=== PATIENT | female | born 1985 | race African-American/Black ===

== ENCOUNTER 2017-05-02 01:36 | Emergency (ER) | payer MEDICAID ==
[~2017-05-02] VITALS: Ht 165.1 cm; Wt 98.0 kg
[2017-05-02] MEDS ORDERED: KETOROLAC 30MG/ML VIAL IV ONE (02:15)
[2017-05-02 02:25] LABS: BASOPHILS % 0.9 % (0.0-2.0); EOSINOPHILS % 8.9 % (0.0-5.0); HEMOGLOBIN. 13.4 g/dL (12.0-16.0); LYMPHOCYTES % 21.1 % (20.0-50.0); MEAN CORPUSCULAR HEMOGLOBIN 31.2 pg (28.0-32.0); MEAN CORPUSCULAR VOLUME 90.6 fL (81.0-99.0); MEAN PLATELET VOLUME 9.2 fl (7.4-10.4); MONOCYTES % 7.2 % (2.0-8.0); NEUTROPHILS % 61.9 % (40.0-76.0); PLATELET 195 x1000/uL (130-400); RED CELL DISTRIBUTION WIDTH 13.1 % (11.6-14.6)
[2017-05-02 02:33] LABS: CHLORIDE 103 mEq/L (98-107)
[2017-05-02 02:36] LABS: D-DIMER 0.34 mg/L FEU (<0.50); PARTIAL THROMBOPLASTIN TIME 24.1 sec (23.4-31.0); PROTHROMBIN TIME 10.7 sec (9.4-11.6)
[2017-05-02 02:39] LABS: CARBON DIOXIDE 25 mEq/L (21-32)
[2017-05-02 03:11] LABS: CLARITY URINE CLOUDY (CLEAR); COLOR URINE YELLOW (YELLOW); KETONES URINE TRACE (NEGATIVE); LEUKOCYTE ESTERASE URINE TRACE (NEGATIVE); NITRITE URINE NEGATIVE (NEGATIVE); OCCULT BLOOD URINE TRACE (NEGATIVE); PH URINE 5.5 (4.5-8.0); PROTEIN URINE 2+ (NEGATIVE); SPECIFIC GRAVITY URINE 1.031 (1.005-1.030)
[2017-05-02 05:21] VITALS: BP 135/77
== END 2017-05-02 05:23 | disposition home or self-care (01) ==
LOC: ER 01:36
DX: R10.9 Unspecified abdominal pain (principal); R30.0 Dysuria; R00.0 Tachycardia, unspecified
CPT/HCPCS: 36415; 71010; 80048; 81001; 81025; 85025; 85379; 85610; 85730; 93005; 99285; Z7610

== ENCOUNTER 2018-07-21 18:12 | Emergency (ER) | payer MEDICAID ==
[~2018-07-21] VITALS: Ht 160 cm; Wt 104.0 kg
[2018-07-21] MEDS ORDERED: SODIUM CHLORIDE 0.9% 1,000 ML IV ONE (19:35)
[2018-07-21 20:15] LABS: BASOPHILS % 0.7 % (0.0-2.0); EOSINOPHILS % 4.6 % (0.0-5.0); HEMATOCRIT. 39.6 % (36.0-48.0); HEMOGLOBIN. 13.1 g/dL (12.0-16.0); LYMPHOCYTES % 27.3 % (20.0-50.0); MEAN CORPUSCULAR HEMOGLOBIN 31.6 pg (28.0-32.0); MEAN CORPUSCULAR VOLUME 95.9 fL (81.0-99.0); MONOCYTES % 8.8 % (2.0-8.0); NEUTROPHILS % 58.6 % (40.0-76.0); PLATELET 189 x1000/uL (130-400); RED BLOOD CELL COUNT 4.13 mill/uL (4.2-5.4); RED CELL DISTRIBUTION WIDTH 12.9 % (11.6-14.6)
[2018-07-21 20:19] LABS: CHLORIDE 103 mEq/L (98-107)
[2018-07-21 20:22] LABS: HCG SCREEN NEGATIVE
[2018-07-22 01:00] VITALS: BP 122/78
== END 2018-07-22 01:37 | disposition home or self-care (01) ==
LOC: ER 18:12
DX: R42 Dizziness and giddiness (principal); R00.2 Palpitations; J45.909 Unspecified asthma, uncomplicated; Z98.890 Other specified postprocedural states; Z91.010 Allergy to peanuts; Z91.018 Allergy to other foods
CPT/HCPCS: 36415; 71045; 80053; 81025; 82962; 84703; 85025; 93005; 96360; 96361; 99284; J7030

== ENCOUNTER 2023-04-13 22:58 | Emergency (ER) | payer MEDICAID ==
[~2023-04-13] VITALS: Ht 160 cm; Wt 93.0 kg
[2023-04-13] MEDS ORDERED: METHYLPREDNISOLONE SOD SUCC 125MG/2ML (ACT-O-VIAL) IV STA (23:17)
[2023-04-13] MEDS ORDERED: ALBUTEROL (0.083%) 2.5MG/3ML NEB HHN STA (23:17)
[2023-04-13] MEDS ORDERED: IPRATROPIUM BROMIDE (0.02%) 0.5MG/2.5ML NEB HHN STA (23:17)
[2023-04-13] MEDS ORDERED: GUAIFENESIN 600MG ER TABLET PO ONE (23:30)
[2023-04-13] MEDS ORDERED: ACETAMINOPHEN 325MG TABLET PO ONE (23:30)
[2023-04-13] MEDS ORDERED: SODIUM CHLORIDE 0.9% 1,000 ML IV ONE (23:30)
[2023-04-14 00:15] VITALS: PULSE 108; RESP 18; O2SAT 98
[2023-04-14 00:39] LABS: *AMPHETAMINES SCREEN URINE NEGATIVE (NEGATIVE); *BARBITURATES SCREEN URINE NEGATIVE (NEGATIVE); *BENZODIAZEPINES SCREEN URINE NEGATIVE (NEGATIVE); *COCAINE SCREEN URINE NEGATIVE (NEGATIVE); CANNABINOID URINE SCREEN NEGATIVE (NEGATIVE); ECSTASY MDMA SCREEN URINE NEGATIVE (NEGATIVE); METHADONE URINE SCREEN Neg (NEGATIVE); OPIATES URINE SCREEN NEGATIVE (NEGATIVE); PHENCYCLIDINE URINE SCREEN NEGATIVE (NEGATIVE)
[2023-04-14 03:12] LABS: CHLORIDE 103 mEq/L (98-107); POTASSIUM 3.5 mEq/L (3.5-5.1); SODIUM 143 mEq/L (136-145)
[2023-04-14 03:13] LABS: CARBON DIOXIDE 26 mEq/L (21-32); CREATININE 0.6 mg/dL (0.6-1.0); GLUCOSE 91 mg/dL (70-105); UREA NITROGEN BLOOD 3 mg/dL (9-23)
[2023-04-14 03:14] LABS: CALCIUM 9.7 mg/dL (8.7-10.4); PROTEIN TOTAL 6.3 g/dL (6.0-8.3)
[2023-04-14 03:15] LABS: ALANINE AMINOTRANSFERASE 57 IU/L (10-49); ALBUMIN 3.6 g/dL (3.2-4.8); ASPARTATE AMINOTRANSFERASE 68 IU/L (<34); BILIRUBIN TOTAL 0.3 mg/dL (0.1-1.0); ETHANOL BLOOD 95 mg/dL (<10)
[2023-04-14] MEDS ORDERED: ALBU05 NEB (03:25)
[2023-04-14] MEDS ORDERED: GUAI600T26 MT (03:25)
[2023-04-14] MEDS ORDERED: ACET-2708 MT (03:25)
[2023-04-14] MEDS ORDERED: MED4 MT (03:25)
[2023-04-14 03:46] LABS: HCG SCREEN NEGATIVE
[2023-04-14 03:51] LABS: BASOPHILS % 0.4 % (0.0-2.0); EOSINOPHILS % 2.2 % (0.0-5.0); HEMATOCRIT. 33.9 % (36.0-48.0); HEMOGLOBIN. 11.7 g/dL (12.0-16.0); LYMPHOCYTES % 50.4 % (20.0-50.0); MEAN CORPUSCULAR HEMOGLOBIN 40.3 pg (28.0-32.0); MEAN CORPUSCULAR HGB CONC 34.4 g/dL (31.0-37.0); MEAN CORPUSCULAR VOLUME 117.2 fL (81.0-99.0); MEAN PLATELET VOLUME 8.2 fl (7.4-10.4); MONOCYTES % 10.2 % (2.0-8.0); NEUTROPHILS % 36.8 % (40.0-76.0); PLATELET 279 x1000/uL (130-400); RED BLOOD CELL COUNT 2.89 mill/uL (4.2-5.4); RED CELL DISTRIBUTION WIDTH 17.3 % (11.6-14.6); WHITE BLOOD COUNT 4.6 x1000/uL (4.5-11.0)
[2023-04-14 03:59] LABS: DIFFERENTIAL COMMENT 1
[2023-04-14 05:00] VITALS: BP 121/77; PULSE 89; RESP 20; TEMP 98.4
== END 2023-04-14 05:00 | disposition home or self-care (01) ==
LOC: ER 22:58
DX: J20.8 Acute bronchitis due to other specified organisms (principal); J45.901 Unspecified asthma with (acute) exacerbation; Z20.822 Contact with and (suspected) exposure to COVID-19; Z98.890 Other specified postprocedural states
CPT/HCPCS: 36415; 71045; 94640; 99284; 80053; 80305; 81025; 80320; 84703; 83880; 85025; 87804 ×2; 96374; 87426; J7030; C9803; Z7610 ×2; J2930; G0480